=== PATIENT | female | born 1975 | race Caucasian/White ===

== ENCOUNTER 2024-12-31 06:36 | Day surgery (SDC) | payer OTHER, SELFPAY ==
--- NOTE | 2024-12-31 | DI.CT.S_ITS ---
PROCEDURE: CT CHEST ABD PEL W CON INDICATIONS: new diagnosis of rectal cancer TECHNIQUE: After the administration of intravenous contrast, 5 mm thick sections acquired from the lung apices to the symphysis. 5 mm coronal and sagittal reformats were performed, with additional 7 mm MIP reformats through the lungs. For radiation dose reduction, the following was used: automated exposure control, adjustment of mA and/or kV according to patient size. COMPARISON: None. FINDINGS: Image quality: Excellent. CHEST: Lower Neck: No enlarged lymph nodes. Thyroid: No thyroid nodules which require sonographic follow up, per consensus guidelines. Axillae: No enlarged lymph nodes. Chest Wall: Bilateral breast implants are intact. Lungs and Pleura: No pneumothorax or pleural effusions. Mild bibasilar dependent atelectasis/scarring is seen. No consolidation or suspicious nodules. Heart: Heart size is normal. No pericardial effusion. Thoracic Vessels: The aorta and pulmonary arteries demonstrate normal size. Mediastinum and Graciela: No enlarged lymph nodes. Esophagus: No wall thickening. No hiatal hernia. ABDOMEN: Liver: There is hepatomegaly. Multiple hypodense and solid appearing lesions are noted scattered in liver parenchyma with the largest lesion occupying nearly entire lateral segment of left hepatic lobe and measures up to 7.7 x 6.3 x 7.4 cm in size series 2, image 103 and series 3, image 31. Smaller medial segment left hepatic lobe lesion measures 4 x 4.7 x 5.9 cm in size is also seen series 2, image 102 and series 3, image 27. There is a 3.1 x 2.6 x 2.1 cm hypodense lesion involving posterior right hepatic dome series 2, image 95 and series 3, image 60. Gallbladder: No radiopaque gallstones or wall thickening. Biliary ducts: No biliary dilation. Pancreas: No ductal dilation. Spleen: Size is within normal limits. Adrenal Glands: No adrenal nodules. Kidneys and Ureters: No hydronephrosis. No solid mass. No complex renal cystic lesion which requires follow up. Stomach and Bowel: Oral contrast is seen reaching transverse colon and proximal descending colon at hepatic flexure. Lobulated circumferential wall thickening involving distal sigmoid colon and rectum is seen with narrowing of the lumen and involving a 7.1 segment later segment of distal sigmoid colon and rectum series 4 image 72 and series 2 image 177. No other area of abnormal bowel wall thickening. Appendix is visualized and is within normal limits. No abscess collection. Peritoneum: No abnormal intraperitoneal fluid. No free air. Ventral Wall: No significant ventral hernia. Abdominal Nodes: No retroperitoneal or mesenteric adenopathy by size criteria. Vessels: Aorta and inferior vena cava are normal in size. PELVIS: Pelvic Organs: Unremarkable. Bladder: No bladder wall thickening, accounting for underdistention. Pelvic Nodes: No enlarged lymph nodes. Miscellaneous: No inguinal hernias are seen. Bones: No aggressive osseous abnormality. IMPRESSION: 1. Circumferential wall thickening involving 7 cm segment of distal sigmoid colon/rectum with narrowing of the lumen consistent with clinical diagnosis of rectal mass. No other area of abnormal bowel wall thickening. No bowel obstruction. No free fluid or free air. 2. Multiple well-circumscribed hypodense lesions scattered in right and left hepatic lobes most notably involving lateral segment of left hepatic lobe consistent with liver metastatic disease. 3. No gross abnormally enlarged lymph nodes are seen in chest, abdomen or pelvis. 4. No suspicious pulmonary nodule is seen. 5. No gross aggressive bony lesion is identified. Nuclear medicine bone scan can be done for further evaluation of osseous structures. Dictated by: Kevin Castro M.D. on 12/31/2024 at 10:20 Approved by: Kevin Castro M.D. on 12/31/2024 at 10:34
--- NOTE | 2024-12-31 | PATH_ITS ---
[facility] Accession Number: [id number] No. of containers..01 Tissue . 01 Material submitted: . rectum - RECTAL MASS . 01 Diagnosis: RECTAL MASS: 1. Colonic tissue with invasive adenocarcinoma, moderately differentiated. 2. No lymphovascular or perineural invasion identified. See comment. . Specimen Comments: This case has also been reviewed by Dr. Nithin Fernandes, who concurs with the diagnosis. These results were called to Dr. Ham by Dr. Jama on 01/03/2025. . Immunohistochemical staining for markers of microsatellite instability (MSI) will be performed, and the results will be reported as an addendum. [facility] 01/03/2025 1121 Local . 01 Electronically signed: . Osman Jama MD, Pathologist NPI- [id number] . 01 Gross description: . Received in formalin, labeled with two patient identifiers and rectal mass, are multiple saenz and brown soft tissue fragments, the largest measures 1.5 x 1.3 x 0.7 cm; inked blue, serially sectioned, and submitted in cassette A1. The remaining fragments were filtered and submitted in cassette A2. ([id number]) /[facility] 01/03/2025 1121 Local . 01 Pathologist provided ICD-10: C20 . 01 CPT . 851293, H33370, D31314 Specimen Comment: A courtesy copy of this report has been sent to [facility] Pathology Performed at: [address] [facility] [id number] MD Osman Jama MD Phone: [phone]
[2024-12-31] MEDS: LACTATED RINGERS 1,000 ML 42 ML IV (07:26)
[2024-12-31 07:30] VITALS: BP 111/69; PULSE 84; RESP 14; TEMP 37.1; O2SAT 99
--- NOTE | 2024-12-31 07:33 | PM.HP.IH.1 ---
History of Present Illness History of Present Illness Date Patient Seen: 12/31/24 Time Patient Seen: 07:33 Chief complaint: [facility] [place] Narrative: This is a 49-year-old white female who has had crampy abdominal pain, back pain, mucus and blood in her stools for over 6 weeks. She states that she has had hemorrhoidal bleeding in the past, but this is not similar to hemorrhoids. Her hemorrhoidal issue started with . She knows this is more of pink tinged mucus in stools. Her primary care doc suggested MiraLax which made the bleeding and diarrhea worse. She has had a fecal calprotectin ordered which is not reported in the system. She had plain x-ray of the abdomen which did not show significant stool burden. [facility] Medical History Internal hemorrhoids with complication Blood in stool, laura Change in bowel habit Prolapse of posterior vaginal wall H/O varicose veins Surgical History H/O breast augmentation History of endometrial ablation Family History Father Hypertension Heart disease (organic) Stroke Sister Hodgkins lymphoma Sister Brain tumor Social History marital status: number of children: 4 household members: spouse and children lives independently: Yes occupational status: employed Smoking Status: Former smoker alcohol intake: former substance use type: does not use Meds Home Medications and Allergies Home Medications Medication Instructions Recorded Confirmed Type Saccharomyces boulardii [Daily PO DAILY 11/11/24 11/11/24 History Probiotic (S. boulardii)] ascorbate calcium (vitamin C) PO DAILY 11/11/24 11/11/24 History calcium carbonate [Calcium 500] PO DAILY 11/11/24 11/11/24 History cholecalciferol (vitamin D3) 50 50 mcg PO DAILY 11/11/24 11/11/24 History mcg (2,000 unit) capsule elderberry fruit PO DAILY 11/11/24 11/11/24 History ferrous sulfate [Iron (ferrous PO DAILY 11/11/24 11/11/24 History sulfate)] fluticasone propionate 50 1 spray intranasal DAILY PRN 11/11/24 12/31/24 History mcg/actuation nasal Allergy Symptoms spray,suspension (Flonase Allergy Relief) inulin [Prebiotic Fiber] PO DAILY 11/11/24 11/11/24 History loratadine 10 mg tablet (Claritin) 10 mg PO DAILY PRN Allergy Symptoms 11/11/24 12/31/24 History multivitamin 1 tab PO DAILY 11/11/24 11/11/24 History Allergies Allergy/AdvReac Type Severity Reaction Status Date / Time No Known Drug Allergies Allergy Verified 12/31/24 07:25 Exam Vital Signs (past 8 hours): - 12/31/24 07:30 Temperature 98.7 F Pulse Rate 84 Respiratory Rate 14 Blood Pressure 111/69 Pulse Oximetry 99 Oxygen Delivery Method Room Air Oxygen Delivery Method Room Air Narrative Exam Narrative: Gen: NAD, sitting comfortably in bed, appears well HEENT: Sclera are anicteric, head is normocephalic and atraumatic, trachea is midline. CV: RRR, no JVD Resp: clear to auscultation bilaterally, equal chest wall movement bilaterally Abd: soft, nontender, normoactive bowel sounds Ext: no edema, full range of motion Neuro: Cranial nerves II-XII grossly intact, no focal deficits Skin: No erythema or ecchymosis Assessment & Plan Assessment and plan (1) Change in bowel habit: Status: Acute (2) Blood in stool, laura: Status: Acute (3) Internal hemorrhoids with complication: Status: Acute Assessment & Plan narrative: Patient presents for colonoscopy and hemorrhoid banding Risks, benefits, alternatives to colonoscopy explained, including but not limited to bowel perforation or other serious complication requiring surgery at less than 1 in 5000 colonoscopies, abdominal pain, cramping or bleeding and less than 1% of colonoscopies, and the chances that we find a diagnosis that would require further intervention of about 2%. Patient understands that without lifestyle changes she has greater than 25% chance of recurrence of her hemorrhoids. Patient agrees to proceed. Time-Based Coding :: [TOTAL MINUTES] spent with patient and on the chart (including review of chart, obtaining history, exam, reviewing outside data, placing orders, documenting exam and treatment plan, and counseling patient) on [DATE]. PROFEE Animal Services Officer Document charge(s): No
--- NOTE | 2024-12-31 07:56 | P.OP.COLON_ITS ---
Operative Date/Time/Diagnoses Date of procedure: 12/31/24 Time of procedure: 07:56 Pre-op diagnosis: blood in stool Post-op diagnosis: other (rectal cancer, 10 cm from the anal verge) Procedure & Clinicians Study performed: Colonoscopy aborted due to obstructing tumor in the rectum, hot snare biopsy of rectal cancer Same procedure as scheduled: Yes Indications: Blood in stool, change in stool Surgeon: Jerod Ham Procedure Notes SCOAP/Timeout: Performed Procedure in detail: Time-out was performed. Mac was induced. Patient was placed in left lateral decubitus position. The perineum was inspected without any gross abnormality. Lubricated pediatric colonoscope was inserted and advanced to a circumferentially obstructing, fungating, bleeding mass 10 cm from the anal verge. The luminal opening was only about 4 or 5 mm in size in the scope was not able to be passed. Hot snare was used to obtain a industrial relations representative biopsy.. Retroflexed view of the rectum showed small, non prolapsed nonbleeding internal hemorrhoids. The scope was withdrawn the patient was taken to PACU in good condition. Scope withdrawal time: 0 Findings: possible cancer (rectal cancer at 10 cm from the anal verge) Specimen(s): other (rectal mass) Complications: none Impression: rectal cancer Post-procedure Recommendations: Colonoscopy in 1 year Plan for aftercare: Ct and labs today Follow up: weeks (with [place] colon and rectal surgery) Disposition: PACU
[2024-12-31 08:00] VITALS: BP 115/68; PULSE 73; RESP 16; TEMP 36.2; O2SAT 98
[2024-12-31 08:05] VITALS: BP 110/60; PULSE 81; RESP 16; O2SAT 98
[2024-12-31 08:10] VITALS: BP 115/68; PULSE 73; RESP 16; TEMP 36.8; O2SAT 98
[2024-12-31 08:16] VITALS: BP 115/68; PULSE 69; RESP 16; O2SAT 98
[2024-12-31 08:21] LABS: Add Manual Diff / Slide Review NO; Basophils Absolute Auto 100 /uL (0-100); Basophils Percent Auto 1.2 % (0-2); Eosinophils Absolute Auto 700 /uL (0-450); Eosinophils Percent Auto 9.9 % (2-4); Hematocrit 31.9 % (36-46); Hemoglobin 10.6 g/dL (12.0-16.0); Lymphocytes Absolute Auto 1100 /uL (1100-4500); Lymphocytes Percent Auto 15.3 % (25-40); Mean Corpuscular HGB Conc 33.4 % (30-36); Mean Corpuscular Hemoglobin 26.3 PG (26-34); Mean Corpuscular Volume 78.9 fL (80-100); Monocytes Absolute Auto 400 /uL (0-900); Monocytes Percent Auto 5.1 % (3-14); Neutrophils Absolute Auto 4800 /uL (1500-7000); Neutrophils Percent Auto 68.5 % (50-75); Platelet Count 387 X10^3/uL (150-400); Red Blood Cell Count 4.04 X10^6/uL (4.0-5.2); Red Cell Distribution Width 14.5 % (11.6-14.8)
--- NOTE | 2024-12-31 08:32 | SUR.PHASEII ---
Patient in phase 2. Her spouse is at the bedside. She is resting comfortably, drinking oral contrast. CT will return between 930-10 to take her for her scan.
[2024-12-31 08:35] LABS: Alanine Aminotransferase 17 IU/L (<35); Albumin 3.9 g/dL (3.5-5.0); Albumin Globulin Ratio 1.3 (1.0-2.8); Alkaline Phosphatase 70 U/L (38-126); Aspartate Aminotransferase 36 IU/L (14-36); BUN Creatinine Ratio 9.7 (6-22); Bilirubin Total 0.5 mg/dL (0.2-1.3); Blood Urea Nitrogen 6 mg/dL (7-17); Calcium 9.1 mg/dL (8.4-10.2); Carbon Dioxide 28 mmol/L (22-32); Chloride 103 mmol/L (98-107); Estimated Glomerular Filt Rate > 60 mL/min (>60); Globulin 2.9 g/dL (1.7-4.1); Glucose 86 mg/dL (70-100); HEMOLYSIS < 15 (0-50); Potassium 3.9 mmol/L (3.4-5.1); Sodium 136 mmol/L (137-145); Total Protein 6.8 g/dL (6.3-8.2)
[2024-12-31 09:06] LABS: Carcinoembryonic Antigen 51.1 ng/mL (0.1-3.0)
[2024-12-31 09:49] VITALS: BP 110/68; PULSE 68; RESP 16; TEMP 36.3; O2SAT 100
== END 2024-12-31 10:41 | disposition home or self-care (01) ==
PROVIDERS: PCP Family Medicine; Referring Provider Surgery; Visit Provider Surgery
PROC: 0DJD8ZZ Inspection of Lower Intestinal Tract, Via Natural or Artificial Opening Endoscopic (ICD-10-PCS; CPT 45378; principal; 2024-12-31 07:45)
DX: C20 Malignant neoplasm of rectum (principal); K64.8 Other hemorrhoids; Z87.891 Personal history of nicotine dependence; Z53.09 Procedure and treatment not carried out because of other contraindication
CPT/HCPCS: 45385; 71260; 74177; 80053; 82378; 85025; J2704; Q9967